=== PATIENT | male | born 1985 | race Caucasian/White ===

== ENCOUNTER 2017-05-05 18:29 | Emergency (ER) | payer SELFPAY ==
[~2017-05-05] VITALS: Ht 190.5 cm; Wt 118.6 kg
[~2017-05-05 18:29] MED LIST: NOHOMEMEDS
[2017-05-05 20:18] LABS: HEMATOCRIT 47.8 % (38.0-50.0); MCH 31.4 PG (29.0-34.0); MCV 87.4 FL (86-99); MEAN PLAT.VOLUME 9.4 uM^3 (9.0-12.4); PLATELET COUNT 254 K/uL (156-360); RBC DIS.WIDTH-CV 11.6 % (11.8-14.6); RBC DIS.WIDTH-SD 37.3 % (39-53); RED BLOOD COUNT 5.47 M/uL (4.00-5.50); WHITE BLOOD COUNT 10.3 K/uL (4.1-10.2)
[2017-05-05 20:28] LABS: CHLORIDE 104 mEq/L (99-109); POTASSIUM 3.8 mEq/L (3.7-5.4); SODIUM 138 mEq/L (136-147)
[2017-05-05 20:30] LABS: GLUCOSE 107 mg/dL (70-99)
[2017-05-05 20:32] LABS: ANION GAP 12 MEQ/L (2-14); TOTAL BILIRUBIN 0.4 mg/dL (0.0-1.0)
[2017-05-05 20:34] LABS: ALKALINE PHOSPHATASE 76 IU/L (3-129); GFR ESTIMATE (CALCULATED) > 59 mL/min/
[2017-05-05 20:35] LABS: UREA NITROGEN (BUN) 13 mg/dL (9-23)
[2017-05-05 20:38] LABS: LIPASE 18 U/L (1.0-51.0)
[2017-05-05] MEDS ORDERED: OMEPRAZOLE40 M1 PO (20:48)
[2017-05-05 21:02] VITALS: BP 135/81
== END 2017-05-05 21:03 | disposition home or self-care (01) ==
LOC: EME 18:29
PROVIDERS: Physician Assistant
DX: K44.9 Diaphragmatic hernia without obstruction or gangrene (principal); K80.20 Calculus of gallbladder without cholecystitis without obstruction; Z87.891 Personal history of nicotine dependence
CPT/HCPCS: 74176; 80053; 83690; 85027; 99281; 99284